=== PATIENT | female | born 1940 | race Caucasian/White ===

== ENCOUNTER 2017-10-14 17:53 | Emergency (ER) | payer MEDICARE, OTHER ==
[~2017-10-14] VITALS: Ht 162.6 cm; Wt 93.0 kg
[~2017-10-14 17:53] MED LIST: LOSARTAN POTASS50 MG PO; TRIAMTERENE-HC1 EAC2 PO
== END 2017-10-14 20:09 | disposition left against medical advice (07) ==
LOC: ER 17:53
DX: R51 Headache (principal)
CPT/HCPCS: 99282